=== PATIENT | male | born 1995 | race Caucasian/White ===

== ENCOUNTER 2019-05-29 10:23 | Outpatient (CLI) | payer SELFPAY ==
[2019-05-31 08:36] LABS: COVID-19 RT-PCR Result Not Detected
== END 2019-05-29 10:43 ==
PROVIDERS: PCP General Practice; Visit Provider Nurse Practitioner Family
DX: Z20.828 Contact with and (suspected) exposure to other viral communicable diseases (principal); R50.9 Fever, unspecified; R05 Cough; Z11.59 Encounter for screening for other viral diseases
CPT/HCPCS: 87449; U0003